=== PATIENT | female | born 1945 | race African-American/Black ===

== ENCOUNTER 2018-11-24 09:15 | Emergency (ER) | payer OTHER ==
[~2018-11-24] VITALS: Ht 167.6 cm; Wt 54.9 kg
[2018-11-24 09:44] LABS: ABSOLUTE NEUTROPHILS 2.8 thou/uL (1.4-8.2); BASOPHILS 1.1 % (0.0-2.0); EOSINOPHILS 3.4 % (0.0-3.0); HEMATOCRIT 43.3 % (37.0-47.0); HEMOGLOBIN 14.3 gm/dL (12.0-15.0); MCH 30.3 pg (26.0-34.0); MCHC 33.1 g/dL (28.0-37.0); MCV 91.7 fL (80.0-100.0); MONOCYTES 5.5 % (1.0-8.0); PLATELET COUNT 201 thou/uL (150-400); RBC 4.73 mil/uL (4.20-5.00); WBC 4.5 thou/uL (4.0-11.0)
[2018-11-24 09:50] LABS: ANION GAP 11 mmol/L (7-16); BUN 14 mg/dL (7-18); CALCIUM 9.7 mg/dL (8.5-10.1); CHLORIDE 105 mmol/L (98-107); CO2 25 mmol/L (21-32); GLUCOSE 94 mg/dL (74-106); POTASSIUM 3.9 mmol/L (3.5-5.1); SODIUM 141 mmol/L (136-145)
[2018-11-24 10:00] LABS: SGOT 27 U/L (15-37); SGPT 19 U/L (30-65); TOTAL BILIRUBIN 0.7 mg/dL (<0.1-1.0); TOTAL PROTEIN 7.7 g/dL (6.4-8.2); TROPONIN-I <0.06 ng/mL (<0.06)
[2018-11-24] MEDS ORDERED: VENTOLIN HFA 1818 GM INH (10:27)
[2018-11-24] MEDS ORDERED: LOSARTAN POTAS100 MG PO (10:28)
[2018-11-24] MEDS ORDERED: LOSARTAN POTASS50 MG PO (10:29)
[2018-11-24] MEDS ORDERED: LOVASTATIN 20 M20 MG PO (10:33)
[2018-11-24] MEDS ORDERED: DOXYCYCLINE 10100 MG PO (10:47)
[2018-11-24] MEDS ORDERED: PREDNISONE 20 M20 M1 PO (10:47)
[2018-11-24] MEDS ORDERED: LIDOCAINE VISC100 ML SWISH&SPIT (10:51)
[2018-11-24] MEDS ORDERED: ANESTHETIC ORAL14 GM MUCOUS MEM (10:54)
[2018-11-24 10:55] VITALS: BP 132/64
--- NOTE | 2018-11-24 16:13 | EKG ---
[address] [place] [address] ELECTROCARDIOGRAM REPORT Name: BRAYDON ZAVALETA Room #: [facility] Carmen#: [id number] ������������������ Admission: 11/24/18 ������������������ Attend Phys: Discharge: 11/24/18 ������������������ Date of : 41 Report #: [id number] ����������������������������������������������������������������� [id number] THIS REPORT FOR: //name// [facility] ED Test Date: 2018-11-24 Test Time: 09:24:39 Pat Name: BRAYDON ZAVALETA Department: Room: Gender: F [employer] Writer: [facility] : 1945 Requested By: Patricia Rios Order Number: [id number] MD: Willis Gonzales Measurements Intervals [place] Rate: 77 P: 75 GA: 153 QRS: 6 QRSD: 73 T: 16 QT: 378 QTc: 428 Interpretive Statements Sinus rhythm Atrial premature complex Nonspecific ST segment abnormality No previous ECG available for comparison Electronically Signed On 11-24-2018 16:13:07 CDT by Willis Gonzales [email or web address] ��������������������������������������������� <ELECTRONICALLY SIGNED> ���������������������������������������� By: Willis Gonzales MD, [facility] ��������������������������������������������� 11/24/18 1613 0924 3 Willis Gonzales MD, FACC /EPI
== END 2018-11-24 10:55 | disposition home or self-care (01) ==
LOC: ER 09:15
PROVIDERS: Emergency Medicine
DX: J44.9 Chronic obstructive pulmonary disease, unspecified (principal); K13.70 Unspecified lesions of oral mucosa; I10 Essential (primary) hypertension; E78.00 Pure hypercholesterolemia, unspecified; F17.210 Nicotine dependence, cigarettes, uncomplicated